=== PATIENT | male | born 1950 | race African-American/Black ===

== ENCOUNTER 2021-06-30 20:52 | Emergency (ER) | payer BC ==
[~2021-06-30] VITALS: Ht 170.2 cm; Wt 73.0 kg
[2021-06-30 21:27] VITALS: BP 140/90
== END 2021-06-30 23:07 | disposition home or self-care (01) ==
LOC: ER 20:52
DX: B34.9 Viral infection, unspecified (principal); Z20.822 Contact with and (suspected) exposure to COVID-19
CPT/HCPCS: 87426; 99283